=== PATIENT | male | born 1965 ===

== ENCOUNTER 2018-01-02 11:50 | Day surgery (SDC) | payer OTHER ==
[~2018-01-02] VITALS: Ht 170.2 cm; Wt 83.2 kg
== END 2018-01-02 13:50 | disposition home or self-care (01) ==
LOC: ORSCSDS 11:50
PROVIDERS: Surgery
PROC: 0DJD8ZZ Inspection of Lower Intestinal Tract, Via Natural or Artificial Opening Endoscopic (ICD-10-PCS; principal; 2018-01-02 13:00)
DX: Z12.11 Encounter for screening for malignant neoplasm of colon (principal)
CPT/HCPCS: J0330; J1980; J2405